=== PATIENT | female | born 1985 | race Caucasian/White ===

== ENCOUNTER 2019-01-03 17:30 | Emergency (ER) | payer MEDICAID ==
[~2019-01-03] VITALS: Ht 157.5 cm; Wt 102.5 kg
[~2019-01-03 17:30] MED LIST: CEFDINIR300 MG PO; CYCLOBENZAPRINE5 MG; FLAGYL500 MG PO; HYDROCODON-ACE1 EAC7; HYDROCODONE-AP1 EAC6 PO; IBUPROFEN 200200 M1; IBUPROFEN 600600 M1; IRON325 PO; NEOSPORIN EYE D10 ML OP; NITROFURANTOIN100 MG; NOHOMEMEDICATIONS; OXCARBAZEPINE300 M1 PO; PERCOCET 5-3251 EACH PO; PREDNISONE 10 M10 M1 PO; PRENATAL; PRENATAL FORMU1 EAC3 PO; PROMETHAZINE-D120 ML PO; XANAX 0.25 MG0.25 MG PO; XANAX 0.5 MG0.5 MG PO; ZOFRAN ODT4 MG PO; ZPAK PO; ZYRTEC10 M2 PO
[2019-01-03] MEDS ORDERED: PNV 29-1 TABLE1 EACH PO (17:48)
[2019-01-03 18:04] LABS: URINE BILIRUBIN NEGATIVE (Negative); URINE BLOOD NEGATIVE (Negative); URINE CLARITY CLEAR; URINE COLOR YELLOW; URINE GLUCOSE-RANDOM NEGATIVE (Negative); URINE KETONES NEGATIVE (Negative); URINE LEUKOCYTES-REFLEX NEGATIVE (Negative); URINE NITRITE-REFLEX NEGATIVE (Negative); URINE PROTEIN NEGATIVE (Negative); URINE UROBILINOGEN 0.2 E.U./dl (0.2-1.0)
[2019-01-03 18:05] LABS: ABSOLUTE BASOPHILS 0.1 thou/uL (0.0-0.2); ABSOLUTE EOSINOPHILS 0.2 thou/uL (0.0-0.7); ABSOLUTE LYMPHOCYTES 2.3 thou/uL (0.8-5.3); ABSOLUTE MONOCYTES 0.8 thou/uL (0.0-1.2); ABSOLUTE NEUTROPHILS 9.2 thou/uL (1.6-8.1); BASOPHILS 0.8 %; EOSINOPHILS 1.4 %; HEMATOCRIT 38.8 % (37.0-47.0); HEMOGLOBIN 12.9 gm/dL (12.0-15.0); LYMPHOCYTES 18.2 %; MCHC 33.3 g/dL (28.0-37.0); MCV 81.2 fL (80.0-100.0); MONOCYTES 6.1 %; MPV 8.7 fl. (7.2-11.1); NUCLEATED RBCS 0 /100WBC; PLATELET COUNT* 218 thou/uL (150-400); POLYS 73.5 %; RBC 4.78 mil/uL (4.20-5.00); RDW-CV 15.2 % (10.5-14.5); WBC 12.5 thou/uL (4.0-11.0)
[2019-01-03 18:15] LABS: CALCIUM 8.8 mg/dL (8.5-10.1); CREATININE 0.7 mg/dL (0.6-1.3); POTASSIUM 4.1 mmol/L (3.5-5.1)
[2019-01-03 18:20] LABS: ALBUMIN 3.2 g/dL (3.4-5.0); TOTAL BILIRUBIN 0.1 mg/dL (<0.1-1.0)
[2019-01-03 20:39] VITALS: BP 126/62
== END 2019-01-03 20:55 | disposition home or self-care (01) ==
LOC: M.ERS 17:30
PROVIDERS: Nurse Practitioner Family
DX: O26.891 Other specified pregnancy related conditions, first trimester (principal); R10.2 Pelvic and perineal pain; R10.31 Right lower quadrant pain; O21.8 Other vomiting complicating pregnancy; Z3A.08 8 weeks gestation of pregnancy; Z88.0 Allergy status to penicillin; Z98.890 Other specified postprocedural states

== ENCOUNTER 2020-03-02 19:15 | Emergency (ER) | payer MEDICAID ==
[~2020-03-02] VITALS: Ht 157.5 cm; Wt 99.8 kg
[~2020-03-02 19:15] MED LIST changes: +PNV 29-1 TABLE1 EACH PO
[2020-03-02] MEDS ORDERED: NYSTATIN 100,0015 G1 TP (19:58)
[2020-03-02 20:08] VITALS: BP 126/74
== END 2020-03-02 20:09 | disposition home or self-care (01) ==
LOC: M.ERS 19:15
DX: N63.0 Unspecified lump in unspecified breast (principal); B37.9 Candidiasis, unspecified; Z98.890 Other specified postprocedural states; Z88.0 Allergy status to penicillin

== ENCOUNTER 2020-09-20 15:55 | Emergency (ER) | payer OTHER ==
[~2020-09-20] VITALS: Ht 157.5 cm; Wt 105.2 kg
[~2020-09-20 15:55] MED LIST changes: +NYSTATIN 100,0015 G1 TP
[2020-09-20] MEDS ORDERED: XANAX 0.5 MG0.5 MG PO (17:45)
[2020-09-20 17:57] VITALS: BP 137/82
--- NOTE | 2020-09-22 12:44 | EKG ---
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 09/22/20 1243 1601 160 Markus García MD, FAC /EPI
== END 2020-09-20 17:58 | disposition home or self-care (01) ==
LOC: M.ERS 15:55
DX: F41.9 Anxiety disorder, unspecified (principal); Z98.51 Tubal ligation status; Z98.890 Other specified postprocedural states

== ENCOUNTER 2020-10-25 14:09 | Emergency (ER) | payer OTHER ==
[~2020-10-25] VITALS: Ht 157.5 cm; Wt 107.0 kg
[2020-10-25] MEDS ORDERED: XANAX2 MG PO (14:18)
[2020-10-25] MEDS ORDERED: LEXAPRO 10 MG T10 M2 PO (14:19)
[2020-10-25] MEDS ORDERED: MOBIC7.5 MG PO (15:01)
[2020-10-25 15:06] VITALS: BP 153/83
== END 2020-10-25 15:07 | disposition home or self-care (01) ==
LOC: M.ERS 14:09
DX: S80.211A Abrasion, right knee, initial encounter (principal); Z98.890 Other specified postprocedural states; Z90.49 Acquired absence of other specified parts of digestive tract; Z79.899 Other long term (current) drug therapy; V29.9XXA Motorcycle rider (driver) (passenger) injured in unspecified traffic accident, initial encounter; Y93.H3 Activity, building and construction; Y92.488 Other paved roadways as the place of occurrence of the external cause; Y99.8 Other external cause status

== ENCOUNTER 2020-11-20 12:32 | Emergency (ER) | payer OTHER ==
[~2020-11-20] VITALS: Ht 157.5 cm; Wt 108.9 kg
[~2020-11-20 12:32] MED LIST changes: +LEXAPRO 10 MG T10 M2 PO; +MOBIC7.5 MG PO; +XANAX2 MG PO
[2020-11-20] MEDS ORDERED: SEROQUEL 25 MG25 M1 PO (12:42)
[2020-11-20] MEDS ORDERED: TESSALON PERLE100 M1 PO (13:13)
[2020-11-20 13:18] VITALS: BP 127/70
== END 2020-11-20 13:19 | disposition home or self-care (01) ==
LOC: M.ERS 12:32
DX: J06.9 Acute upper respiratory infection, unspecified (principal); Z20.822 Contact with and (suspected) exposure to COVID-19; Z90.49 Acquired absence of other specified parts of digestive tract; Z98.51 Tubal ligation status; Z79.899 Other long term (current) drug therapy

== ENCOUNTER 2020-11-30 18:49 | Emergency (ER) | payer OTHER ==
[~2020-11-30] VITALS: Ht 162.6 cm; Wt 112.5 kg
--- NOTE | ~2020-11-30 | EMS ---
[address] [place] [address] EMS Patient Care Report Name: CEDRIC [facility]LVAREZ [id number] Admission: 11/30/20 Attend Phys: Discharge: 11/30/20 Date of : [birth year] Report #: [id number] THIS REPORT FOR: //name// Report Transmitted: 12/01/2020 07:08 EMS Care Summary [facility] Incident [id number] @ 11/30/2020 18:02 Incident Location [address] [place] [address] Patient BRANDO ÁLVAREZ Female, 35 Years 1985 Patient Address [address] [place] [address] Patient History Other,None Reported, Patient Allergies No known allergies, Patient Medications Xanax, Chief Complaint AMS Disposition Transported No Lights/[place] Dispatch Reason Unconscious/Fainting Transported To [facility] Narrative Dispatched to a residence for a 35y/o female unresponsive. Upon arrival pt. was lying on the floor unresponsive but breathing. Pt. stated that pt. had been acting "strange" for approx. 2 hours then just prior to calling 911 pt. "staggered" into the room and fell onto the floor. He stated that pt. didn't [address] [place] [address] EMS Patient Care Report Name: CEDRIC ÁLVAREZ [facility] [id number] Admission: 11/30/20 Attend Phys: Discharge: 11/30/20 Date of : [birth year] Report #: [id number] hit her head and has had no recent trauma. He further stated that pt. does not have access to any narcotics. Pt. initially had no response to pain. EMS was not able to palpate a radial pulse at first. Paddles were placed and showed that pt. had a sinus rhythm and a carotid pulse was palpated. BG was 103. Pt. was moved to ambulance where Narcan was administered IN while O2 was placed, 12 lead EKG was attached, and IV was started. 2nd dose of Narcan was administered IV with no effect. Pt. began to open her eyes and moan to sternal rubs. NPA was placed and pt. vomited and became combative until it was removed. There were no other changes to pt. condition. Pt. was transported to [facility] for emergency services. Initial Vitals @18:30P: 77,R: 21,BP: 103/64,GCS: 8,EtCO2: 42,SpO2: 98,Revised Trauma: 10, @18:22P: 79,R: 14,BP: 136/88,GCS: 8,SpO2: 100,Revised Trauma: 10, @18:23P: 74,SpO2: 100, @18:45P: 74,R: 19,BP: 94/60,GCS: 8,EtCO2: 42,SpO2: 99,Revised Trauma: 10, @18:12P: 71,R: 14,BP: 110/68,GCS: 8,Glucose: 103,SpO2: 98,Revised Trauma: 10, Impression Altered Mental Status Procedures @18:30Saline Lock 20cc (20 ga) Site: Forearm-LeftResponse: UnchangedSucceeded@18:10Oxygen FlowRate: 15 Device: Non Re-breather Mask (NRB) Response: UnchangedSucceeded@18:25Oxygen FlowRate: 4 Device: CO2 Nasal Cannula Response: UnchangedSucceeded@18:20NPA Response: UnchangedSucceeded@18:15Naloxone - 2 Milligrams (mg) - IntranasalResponse: Unchanged@18:35Naloxone - 2 Milligrams (mg) - Intravenous (IV)Response: Unchanged@18:2312-Lead ECGResponse: UnchangedSucceeded Timeline 18:02,Call Received 18:02,Dispatched 18:03,En Route 18:06,Initial Responder On Scene 18:06,On Scene 18:07,At Patient 18:10,Oxygen FlowRate: 15 Device: Non Re-breather Mask (NRB) Response: UnchangedSucceeded, 18:12,BP: 110/68 M,PULSE: 71,RR: 14 R,SPO2: 98 Ox,ETCO2: ,B,PAIN: ,GCS: 8, 18:15,Naloxone - 2 Milligrams (mg) - Intranasal,Response: Unchanged 18:20,NPA Response: UnchangedSucceeded, 18:22,BP: 136/88 M,PULSE: 79,RR: 14 R,SPO2: 100 Ox,ETCO2: ,BG: ,PAIN: ,GCS: 8, 18:23,12-Lead ECG,Response: UnchangedSucceeded, [place] [address] EMS Patient Care Report Name: CEDRIC ÁLVAREZ [facility] [id number] Admission: 11/30/20 Attend Phys: Discharge: 11/30/20 Date of : [birth year] Report #: [id number] 18:23,BP: / M,PULSE: 74,RR: R,SPO2: 100 Ox,ETCO2: ,BG: ,PAIN: ,GCS: , 18:24,Depart Scene 18:25,Oxygen FlowRate: 4 Device: CO2 Nasal Cannula Response: UnchangedSucceeded, 18:30,Saline Lock 20cc 20 ga Site: Forearm-Left,Response: UnchangedSucceeded, 18:30,BP: 103/64 M,PULSE: 77,RR: 21 R,SPO2: 98 Ox,ETCO2: 42 ,BG: ,PAIN: ,GCS: 8, 18:35,Naloxone - 2 Milligrams (mg) - Intravenous (IV),Response: Unchanged 18:45,BP: 94/60 M,PULSE: 74,RR: 19 R,SPO2: 99 Ox,ETCO2: 42 ,BG: ,PAIN: ,GCS: 8, 18:46,At Destination 19:08,Transfer Patient 19:23,Call Closed Disclaimer v1.1 Copyright 2020 [employer] This EMS Care Summary contains data elements from the applicable legal record (which may be displayed differently). It is designed to provide pertinent information for the following purposes: continuity of care, clinical quality, and state data reporting. The complete legal record is available to ED staff and administrators of the receiving hospital in [employer]'s Patient Tracker. All data is provided "as is."
[~2020-11-30 18:49] MED LIST changes: +SEROQUEL 25 MG25 M1 PO; +TESSALON PERLE100 M1 PO
[2020-11-30] MEDS ORDERED: METHOCARBAMOL750 MG PO (19:02)
[2020-11-30] MEDS ORDERED: MELOXICAM7.5 MG PO (19:03)
[2020-11-30] MEDS ORDERED: OMEPRAZOLE 20 M20 M1 PO (19:03)
[2020-11-30 19:30] LABS: URINE BILIRUBIN NEGATIVE (Negative); URINE BLOOD NEGATIVE (Negative); URINE CLARITY CLEAR; URINE COLOR YELLOW; URINE GLUCOSE-RANDOM NEGATIVE (Negative); URINE KETONES NEGATIVE (Negative); URINE LEUKOCYTES-REFLEX NEGATIVE (Negative); URINE NITRITE-REFLEX NEGATIVE (Negative); URINE PROTEIN NEGATIVE (Negative); URINE UROBILINOGEN 0.2 E.U./dl (0.2-1.0)
[2020-11-30 19:43] LABS: ABSOLUTE BASOPHILS 0.1 thou/uL (0.0-0.2); ABSOLUTE EOSINOPHILS 0.1 thou/uL (0.0-0.7); ABSOLUTE LYMPHOCYTES 1.8 thou/uL (0.8-5.3); ABSOLUTE MONOCYTES 0.3 thou/uL (0.0-1.2); ABSOLUTE NEUTROPHILS 7.3 thou/uL (1.6-8.1); BASOPHILS 0.8 %; EOSINOPHILS 1.5 %; HEMATOCRIT 33.9 % (37.0-47.0); HEMOGLOBIN 10.4 gm/dL (12.0-15.0); LYMPHOCYTES 18.8 %; MCHC 30.6 g/dL (28.0-37.0); MCV 65.4 fL (80.0-100.0); MONOCYTES 2.9 %; MPV 8.2 fl. (7.2-11.1); NUCLEATED RBCS 0 /100WBC; PLATELET COUNT* 318 thou/uL (150-400); RBC 5.18 mil/uL (4.20-5.00); RDW-CV 18.1 % (10.5-14.5); WBC 9.6 thou/uL (4.0-11.0)
[2020-11-30 19:55] LABS: BE -1.5 mmol/L (-2 to +3); PCO2 45.4 mmHg (35.0-45.0); PO2 67.8 mmHg (75.0-100.0); pH 7.346 (7.340-7.450)
[2020-11-30 19:59] LABS: CALCIUM 8.4 mg/dL (8.5-10.1); CREATININE 0.7 mg/dL (0.6-1.3); POTASSIUM 3.4 mmol/L (3.5-5.1)
[2020-11-30 20:04] LABS: ALBUMIN 3.6 g/dL (3.4-5.0); MAGNESIUM 1.9 mg/dL (1.8-2.4); TOTAL BILIRUBIN 0.1 mg/dL (<0.1-1.0); TOTAL PROTEIN 7.3 g/dL (6.4-8.2)
[2020-11-30 21:14] LABS: AMP/METHAMP Negative (Negative); BARBITURATES Negative (Negative); BENZODIAZEPINES Negative (Negative); COCAINE Negative (Negative); METHADONE Negative (Negative); OPIATES Negative (Negative); PCP Negative (Negative); THC POSITIVE (Negative)
[2020-11-30 22:25] LABS: ANISOCYTOSIS 1+; POLYCHROMASIA Occasional
[2020-11-30 22:26] LABS: LARGE PLATELETS RARE; PLATELET ESTIMATE ADEQUATE
[2020-11-30 22:27] LABS: HYPOCHROMASIA 2+; MICROCYTES 3+
[2020-11-30 23:23] VITALS: BP 108/59
--- NOTE | 2020-12-01 11:19 | EKG ---
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
== END 2020-11-30 23:25 | disposition home or self-care (01) ==
LOC: M.ERS 18:49
PROVIDERS: Personal Emergency Response Attendant
DX: F10.129 Alcohol abuse with intoxication, unspecified (principal); R41.82 Altered mental status, unspecified; Z20.822 Contact with and (suspected) exposure to COVID-19; Z79.899 Other long term (current) drug therapy; Z98.890 Other specified postprocedural states; Z98.51 Tubal ligation status

== ENCOUNTER 2021-02-14 06:54 | Emergency (ER) | payer OTHER ==
[~2021-02-14] VITALS: Ht 157.5 cm; Wt 104.3 kg
[~2021-02-14 06:54] MED LIST changes: +MELOXICAM7.5 MG PO; +METHOCARBAMOL750 MG PO; +OMEPRAZOLE 20 M20 M1 PO
[2021-02-14] MEDS ORDERED: LEXAPRO20 MG PO (09:56)
[2021-02-14 10:00] VITALS: BP 141/70
--- NOTE | 2021-02-15 10:16 | EKG ---
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
== END 2021-02-14 10:00 | disposition home or self-care (01) ==
LOC: M.ERS 06:54
DX: F41.9 Anxiety disorder, unspecified (principal); R07.89 Other chest pain; R42 Dizziness and giddiness; Z98.890 Other specified postprocedural states; Z98.51 Tubal ligation status; Z90.49 Acquired absence of other specified parts of digestive tract; Z79.899 Other long term (current) drug therapy

== ENCOUNTER 2021-03-03 18:36 | Emergency (ER) | payer OTHER ==
[~2021-03-03] VITALS: Ht 157.5 cm; Wt 104.3 kg
[~2021-03-03 18:36] MED LIST changes: +LEXAPRO20 MG PO
[2021-03-03 20:11] LABS: INFLUENZA A ANTIGEN Negative (Negative); INFLUENZA B ANTIGEN Negative (Negative)
[2021-03-03] MEDS ORDERED: APAP W/CODEINE1 TA2 PO (20:33)
[2021-03-03] MEDS ORDERED: PROMETHAZI6.25 MG/5 PO (20:33)
[2021-03-03 20:43] VITALS: BP 133/87
== END 2021-03-03 20:44 | disposition home or self-care (01) ==
LOC: M.ERS 18:36
PROVIDERS: Emergency Medicine
DX: J06.9 Acute upper respiratory infection, unspecified (principal); R13.10 Dysphagia, unspecified; F41.9 Anxiety disorder, unspecified; F32.9 Major depressive disorder, single episode, unspecified; F12.90 Cannabis use, unspecified, uncomplicated; Z98.890 Other specified postprocedural states; Z98.51 Tubal ligation status; Z90.49 Acquired absence of other specified parts of digestive tract; Z79.1 Long term (current) use of non-steroidal anti-inflammatories (NSAID); Z79.891 Long term (current) use of opiate analgesic; Z79.899 Other long term (current) drug therapy

== ENCOUNTER 2021-03-31 19:11 | Emergency (ER) | payer OTHER ==
[~2021-03-31] VITALS: Ht 157.5 cm; Wt 108.9 kg
[~2021-03-31 19:11] MED LIST changes: +APAP W/CODEINE1 TA2 PO; +PROMETHAZI6.25 MG/5 PO
[2021-03-31 20:22] LABS: URINE BILIRUBIN NEGATIVE (Negative); URINE BLOOD NEGATIVE (Negative); URINE CLARITY CLEAR; URINE COLOR YELLOW; URINE GLUCOSE-RANDOM NEGATIVE (Negative); URINE KETONES NEGATIVE (Negative); URINE LEUKOCYTES-REFLEX NEGATIVE (Negative); URINE NITRITE-REFLEX NEGATIVE (Negative); URINE PROTEIN NEGATIVE (Negative); URINE UROBILINOGEN 0.2 E.U./dl (0.2-1.0)
[2021-03-31 20:56] VITALS: BP 137/64
== END 2021-03-31 20:56 | disposition home or self-care (01) ==
LOC: M.ERS 19:11
PROVIDERS: Personal Emergency Response Attendant
DX: M54.50 Low back pain, unspecified (principal); R30.0 Dysuria; R35.0 Frequency of micturition; L29.2 Pruritus vulvae; F41.9 Anxiety disorder, unspecified; F32.9 Major depressive disorder, single episode, unspecified; Z98.890 Other specified postprocedural states; Z90.49 Acquired absence of other specified parts of digestive tract; Z79.899 Other long term (current) drug therapy